=== PATIENT | male | born 1985 | race Caucasian/White ===

== ENCOUNTER 2017-08-26 19:35 | Inpatient (IN) | payer SELFPAY ==
[~2017-08-26] VITALS: Ht 188 cm; Wt 75.0 kg
[~2017-08-26 19:35] MED LIST: DICL75 PO
[2017-08-26 19:56] VITALS: BP 157/88; PULSE 107; RESP 20; TEMP 98.2; O2SAT 97
--- NOTE | 2017-08-26 20:14 | PD ---
HPI Chief Complaint: Injury Time Seen by Provider: 20:04 Travel History International Travel<30 days: No Contact w/Intl Traveler<30days: No Traveled to known affect area: No History of Present Illness HPI 32-year-old male presents to the emergency department for evaluation of left leg injury that occurred just prior to arrival. Patient was playing baseball when he slid into third base wrong causing the leg injury. Patient denies any lacerations or open areas to the lower leg. Patient has a splint put on by EMS to the left lower extremity. Patient denies any chronic medical problems and takes no prescribed medications. He states that he last ate approximately 1:30 this afternoon. He denies any other injury. No head injury. No neck pain or back pain. No chest pain or abdominal pain. No vomiting. The exacerbating factor is movement. No alleviating factors. Moderate severity. PFSH Past Medical History Diminished Hearing: No Musculoskeletal: Yes (2013- left knee: infrapatellar bursitis ) Tetanus Vaccination: > 5 Years Past Surgical History Appendectomy: Yes Social History Alcohol Use: Yes (SOCIAL) Tobacco Use: Yes (1 PPD) Substance Use: No Allergies-Medications (Allergen,Severity, Reaction): Coded Allergies: No Known Allergies (Verified Adverse Reaction, Unknown, 08/26/17) Reported Meds & Prescriptions Reported Meds & Active Scripts Active No Active Prescriptions or Reported Medications Review of Systems Except as stated in HPI: all other systems reviewed are Neg Physical Exam Narrative GENERAL: Well-nourished, well-developed male patient, afebrile SKIN: Focused skin assessment warm/dry. HEAD: Normocephalic. Atraumatic. EYES: No scleral icterus. No injection or drainage. NECK: Supple, trachea midline. No JVD or lymphadenopathy. CARDIOVASCULAR: Regular rate and rhythm without murmurs, gallops, or rubs. Left pedal pulse 2+. RESPIRATORY: Breath sounds equal bilaterally. No accessory muscle use. Lungs sounds are clear to auscultation. GASTROINTESTINAL: Abdomen soft, non-tender, nondistended. MUSCULOSKELETAL: No cyanosis, or edema. Patient has obvious deformity of the left lower extremity. BACK: Nontender without obvious deformity. No CVA tenderness. Data Data Last Documented VS Vital Signs Date Time Temp Pulse Resp B/P (MAP) Pulse Ox O2 Delivery O2 Flow Rate FiO2 08/26/17 21:01 86 20 139/89 (106) 100 Room Air 08/26/17 19:56 98.2 Orders Orders Iv Access Insert/Monitor (08/26/17 20:10) Complete Blood Count With Diff (08/26/17 20:10) Comprehensive Metabolic Panel (08/26/17 20:10) Prothrombin Time / Inr (Pt) (08/26/17 20:10) Act Partial Throm Time (Ptt) (08/26/17 20:10) Tibia/Fibula (Ap/Lat) (08/26/17 ) Hydromorphone Pf Inj (Dilaudid Pf Inj) (08/26/17 20:45) Ondansetron Inj (Zofran Inj) (08/26/17 20:45) Sodium Chlor 0.9% 1000 Ml Inj (Ns 1000 M (08/26/17 20:45) Hydromorphone Pf Inj (Dilaudid Pf Inj) (08/26/17 21:15) Hydromorphone Pf Inj (Dilaudid Pf Inj) (08/26/17 21:15) Admit Order (Ed Use Only) (08/26/17 21:25) Labs Laboratory Tests Test 08/26/17 20:35 White Blood Count 11.8 TH/MM3 Red Blood Count 4.61 MIL/MM3 Hemoglobin 14.0 GM/DL Hematocrit 41.8 % Mean Corpuscular Volume 90.7 FL Mean Corpuscular Hemoglobin 30.4 PG Mean Corpuscular Hemoglobin Concent 33.5 % Red Cell Distribution Width 13.6 % Platelet Count 254 TH/MM3 Mean Platelet Volume 7.3 FL Neutrophils (%) (Auto) 80.1 % Lymphocytes (%) (Auto) 13.3 % Monocytes (%) (Auto) 6.0 % Eosinophils (%) (Auto) 0.2 % Basophils (%) (Auto) 0.4 % Neutrophils # (Auto) 9.4 TH/MM3 Lymphocytes # (Auto) 1.6 TH/MM3 Monocytes # (Auto) 0.7 TH/MM3 Eosinophils # (Auto) 0.0 TH/MM3 Basophils # (Auto) 0.0 TH/MM3 CBC Comment DIFF FINAL Differential Comment Prothrombin Time 11.1 SEC Prothromb Time International Ratio 1.1 RATIO Activated Partial Thromboplast Time 22.1 SEC Blood Urea Nitrogen 15 MG/DL Creatinine 1.23 MG/DL Random Glucose 113 MG/DL Total Protein 7.7 GM/DL Albumin 4.6 GM/DL Calcium Level 8.2 MG/DL Alkaline Phosphatase 84 U/L Aspartate Amino Transf (AST/SGOT) 10 U/L Alanine Aminotransferase (ALT/SGPT) 23 U/L Total Bilirubin 0.4 MG/DL Sodium Level 138 MEQ/L Potassium Level 3.4 MEQ/L Chloride Level 103 MEQ/L Carbon Dioxide Level 26.8 MEQ/L Anion Gap 8 MEQ/L Estimat Glomerular Filtration Rate 68 ML/MIN MDM Medical Decision Making Medical Screen Exam Complete: Yes Emergency Medical Condition: Yes Medical Record Reviewed: Yes Interpretation(s) Last Impressions Tibia/Fibula X-Ray 08/26/17 0000 Signed Impressions: Service Date/Time: Saturday, August 26, 2017 20:33 - CONCLUSION: Spiral fractures of the distal tibia and proximal fibula with significant displacement of the distal tibial fragment Madhav Spain MD Differential Diagnosis Fracture versus dislocation versus open fracture Narrative Course 32-year-old male presents to the emergency department for evaluation of injury to his left lower extremity while sliding the third place a baseball. It is obvious deformity of the left lower extremity. IV access obtained. CBC, CMP, PTT, PT/INR ordered and pending. X-ray of the left tibia/fibula is ordered and pending. CBC shows leukocytosis of 11.8. CMP shows no acute abnormalities. Coags shows no acute abnormality. X-ray shows spiral fractures of the distal tibia and proximal fibula with significant displacement of the distal tibial fragment. Patient was in severe pain. He received Dilaudid 1 mg IV 2 doses. He is now comfortable. I spoke to Dr. Early, orthopedist research professional, who states the patient will go to the OR tomorrow. He is to be nothing by mouth after midnight consult is to be placed. Dr. Chi accepted admission. Diagnosis Primary Impression: Fracture, fibula, proximal Qualified Codes: S82.832A - Other fracture of upper and lower end of left fibula, initial encounter for closed fracture Additional Impression: Fracture of distal end of tibia Qualified Codes: S82.392A - Other fracture of lower end of left tibia, initial encounter for closed fracture Admitting Information Admitting Physician Requests: Admit Scripts No Active Prescriptions or Reported Meds Radha Werner Aug 26, 2017 20:14
[2017-08-26] MEDS ORDERED: SODIUM CHLOR 0.9% 1000 ML INJ 1,000 ML IV ONE (20:45)
[2017-08-26] MEDS ORDERED: ONDANSETRON HCL 4 MG/2 ML VIAL IV PUSH ONE (20:45)
[2017-08-26] MEDS ORDERED: HYDROmorphone HCL PF 1 MG/ML VIAL IV PUSH ONE (20:45)
[2017-08-26 20:56] LABS: AUTOMATED NEUTROPHIL # 9.4 TH/MM3 (1.8-7.7); BASOPHIL % 0.4 % (0.0-2.0); EOSINOPHIL % 0.2 % (0.0-4.0); HEMATOCRIT 41.8 % (39.0-51.0); LYMPH % 13.3 % (9.0-44.0); LYMPHOCYTE # 1.6 TH/MM3 (1.0-4.8); MEAN CELL VOLUME 90.7 FL (80.0-100.0); MEAN CORPUSCULAR HEMOGLOBIN 30.4 PG (27.0-34.0); MEAN CORPUSCULAR HGB CONC 33.5 % (32.0-36.0); MEAN PLATELET VOLUME 7.3 FL (7.0-11.0); MONOCYTE # 0.7 TH/MM3 (0-0.9); NEUT % 80.1 % (16.0-70.0); PLATELET COUNT 254 TH/MM3 (150-450); RED BLOOD COUNT 4.61 MIL/MM3 (4.50-5.90); RED CELL DISTRIBUTION WIDTH 13.6 % (11.6-17.2); WHITE BLOOD COUNT 11.8 TH/MM3 (4.0-11.0)
--- NOTE | 2017-08-26 21:00 | RADRPT ---
EXAM DATE/TIME: 08/26/2017 20:33 [facility] COMPARISON: No previous studies available for comparison. INDICATIONS : Left lower leg trauma. Patient hurt leg sliding into home base. MEDICAL HISTORY : None. SURGICAL HISTORY : None. ENCOUNTER: Initial ACUITY: 1 day PAIN SCORE: 10/10 LOCATION: Left lower leg. FINDINGS: There is a spiral displaced fracture of the distal one third shaft of the tibia with one shaft width lateral displacement of the distal fragment. Possible small comminuted fragments distal to the tibia l shaft. There is also a spiral fracture of the proximal diametaphysis of the fibula with mild angul ation. No radiopaque foreign bodies. CONCLUSION: Spiral fractures of the distal tibia and proximal fibula with significant displacement of the distal tibial fragment Madhav Spain MD on August 26, 2017 at 20:57 Board Certified Radiologist. This report was verified electronically.
[2017-08-26 21:01] VITALS: BP 139/89; PULSE 86; RESP 20; O2SAT 100
[2017-08-26 21:14] LABS: INTERNATIONAL NORMALIZED RATIO 1.1 RATIO; PROTHROMBIN TIME - PATIENT 11.1 SEC (9.8-11.6)
[2017-08-26] MEDS ORDERED: HYDROmorphone HCL PF 2 MG/ML VIAL IV PUSH ONE ×2 (21:15)
[2017-08-26 21:26] LABS: ALBUMIN 4.6 GM/DL (3.4-5.0); AST (GOT) 10 U/L (15-37); BICARBONATE 26.8 MEQ/L (21.0-32.0); BLOOD UREA NITROGEN 15 MG/DL (7-18); CALCIUM 8.2 MG/DL (8.5-10.1); CHLORIDE 103 MEQ/L (98-107); CREATININE 1.23 MG/DL (0.60-1.30); GLOMERULAR FILTRATION RATE 68 ML/MIN (>89); GLUCOSE,RANDOM 113 MG/DL (74-106); SODIUM (NA) 138 MEQ/L (136-145)
[2017-08-26 21:29] LABS: ALKALINE PHOSPHATASE 84 U/L (45-117); ALT (GPT) 23 U/L (12-78); TOTAL BILIRUBIN ADULT 0.4 MG/DL (0.2-1.0); TOTAL PROTEIN 7.7 GM/DL (6.4-8.2)
[2017-08-26] MEDS ORDERED: POTASSIUM CHLORIDE INJ 0.02 MEQ in SODIUM CHLOR 0.9% 1000 ML INJ 1 ML IV SCH (21:50)
[2017-08-26 22:00] VITALS: BP 131/73; PULSE 88; RESP 18; O2SAT 98
[2017-08-26] MEDS ORDERED: NALOXONE HCL 0.4 MG/ML AMP IV PUSH PRN (22:00)
[2017-08-26] MEDS ORDERED: HYDROmorphone HCL PF 1 MG/ML VIAL IV PUSH PRN (22:00)
[2017-08-26] MEDS ORDERED: ACETAMINOPHEN 325 MG TAB PO PRN (22:00)
--- NOTE | 2017-08-26 22:35 | HHI.HP ---
[facility] Service [place] [facility] Primary Care Physician No Primary Care Physician Admission Diagnosis spiral fractures of the distal tibia and proximal fibula Diagnoses: Travel History International Travel<30 Days: No Contact w/Intl Traveler <30 Da: No Traveled to Known Affected Are: No History of Present Illness 32-year-old male with no significant past medical history presents the emergency department for evaluation of left leg deformity/pain. The patient reports he was playing baseball when he attempted to slide into third base at which time he felt severe pain in his right lower extremity. He denies any lacerations or open areas to the lower leg. Per emergency department notes there was an obvious deformity of the left lower extremity. At this time, the patient is splinted. He has full range of motion of his toes and is neurovascularly intact. He continues to complain of lower extremity pain. He denies any chest pain or shortness of breath. No nausea/vomiting/diarrhea. No other associated symptoms. Review of Systems Except as stated in HPI: all other systems reviewed are Neg Past Family Social History Past Medical History None Past Surgical History Appendectomy Reported Medications Reported Meds & Active Scripts Active No Active Prescriptions or Reported Medications Allergies: Coded Allergies: No Known Allergies (Verified Allergy, Unknown, 08/26/17) Family History Patient does not know. Social History Smokes approximately half a pack per day. Occasional alcohol. Denies illicit drugs. Physical Exam Vital Signs Vital Signs Date Time Temp Pulse Resp B/P (MAP) Pulse Ox O2 Delivery O2 Flow Rate FiO2 08/26/17 21:01 86 20 139/89 (106) 100 Room Air 08/26/17 20:07 Room Air 08/26/17 19:56 98.2 107 20 157/88 (111) 97 Physical Exam GENERAL: male lying in bed SKIN: No rashes, ecchymoses or lesions. Cool and dry. HEAD: Atraumatic. Normocephalic. No temporal or scalp tenderness. EYES: Pupils equal round and reactive. Extraocular motions intact. No scleral icterus. No injection or drainage. ENT: Nose without bleeding, purulent drainage or septal hematoma. Throat without erythema, tonsillar hypertrophy or exudate. Uvula midline. Airway patent. NECK: Trachea midline. No JVD or lymphadenopathy. Supple, nontender, no meningeal signs. CARDIOVASCULAR: Regular rate and rhythm without murmurs, gallops, or rubs. RESPIRATORY: Clear to auscultation. Breath sounds equal bilaterally. No wheezes , rales, or rhonchi. GASTROINTESTINAL: Abdomen soft, non-tender, nondistended. No hepato-splenomegaly , or palpable masses. No guarding. MUSCULOSKELETAL: Left leg splinted. Range of motion of the toes intact. Neurovascularly intact. NEUROLOGICAL: Awake and alert. Cranial nerves II through XII intact. Motor and sensory grossly within normal limits. Normal speech. Laboratory Laboratory Tests Test 08/26/17 20:35 White Blood Count 11.8 Red Blood Count 4.61 Hemoglobin 14.0 Hematocrit 41.8 Mean Corpuscular Volume 90.7 Mean Corpuscular Hemoglobin 30.4 Mean Corpuscular Hemoglobin Concent 33.5 Red Cell Distribution Width 13.6 Platelet Count 254 Mean Platelet Volume 7.3 Neutrophils (%) (Auto) 80.1 Lymphocytes (%) (Auto) 13.3 Monocytes (%) (Auto) 6.0 Eosinophils (%) (Auto) 0.2 Basophils (%) (Auto) 0.4 Neutrophils # (Auto) 9.4 Lymphocytes # (Auto) 1.6 Monocytes # (Auto) 0.7 Eosinophils # (Auto) 0.0 Basophils # (Auto) 0.0 CBC Comment DIFF FINAL Differential Comment Prothrombin Time 11.1 Prothromb Time International Ratio 1.1 Activated Partial Thromboplast Time 22.1 Blood Urea Nitrogen 15 Creatinine 1.23 Random Glucose 113 Total Protein 7.7 Albumin 4.6 Calcium Level 8.2 Alkaline Phosphatase 84 Aspartate Amino Transf (AST/SGOT) 10 Alanine Aminotransferase (ALT/SGPT) 23 Total Bilirubin 0.4 Sodium Level 138 Potassium Level 3.4 Chloride Level 103 Carbon Dioxide Level 26.8 Anion Gap 8 Estimat Glomerular Filtration Rate 68 Result Diagram: 08/26/17203408/26/172034 Caprini VTE Risk Assessment Caprini VTE Risk Assessment: No/Low Risk (score <= 1) Caprini Risk Assessment Model Point Value = 1 Point Value = 2 Point Value = 3 Point Value = 5 Age 41-60 Minor surgery BMI > 25 kg/m2 Swollen legs Varicose veins or History of unexplained or recurrent spontaneous Oral contraceptives or hormone replacement Sepsis (< 1 month) Serious lung disease, including pneumonia (< 1 month) Abnormal pulmonary function Acute myocardial infarction Congestive heart failure (< 1 month) History of inflammatory bowel disease Medical patient at bed rest Age 61-74 Arthroscopic surgery Major open surgery (> 45 min) Laparoscopic surgery (> 45 min) Malignancy Confined to bed (> 72 hours) Immobilizing plaster cast Central venous access Age >= 75 History of VTE Family history of VTE Factor V Leiden Prothrombin [id number] Lupus anticoagulant Anticardiolipin antibodies Elevated serum homocysteine Heparin-induced thrombocytopenia Other congenital or acquired thrombophilia Stroke (< 1 month) Elective arthroplasty Hip, pelvis, or leg fracture Acute spinal cord injury (< 1 month) Prophylaxis Regimen Total Risk Factor Score Risk Level Prophylaxis Regimen 0-1 Low Early ambulation 2 Moderate Order ONE of the following: *Sequential Compression Device (SCD) *Heparin 5000 units SQ BID 3-4 Higher Order ONE of the following medications: *Heparin 5000 units SQ TID *Enoxaparin/Lovenox 40 mg SQ daily (WT < 150 kg, CrCl > 30 mL/min) *Enoxaparin/Lovenox 30 mg SQ daily (WT < 150 kg, CrCl > 10-29 mL/min) *Enoxaparin/Lovenox 30 mg SQ BID (WT < 150 kg, CrCl > 30 mL/min) AND/OR *Sequential Compression Device (SCD) 5 or more Highest Order ONE of the following medications: *Heparin 5000 units SQ TID (Preferred with Epidurals) *Enoxaparin/Lovenox 40 mg SQ daily (WT < 150 kg, CrCl > 30 mL/min) *Enoxaparin/Lovenox 30 mg SQ daily (WT < 150 kg, CrCl > 10-29 mL/min) *Enoxaparin/Lovenox 30 mg SQ BID (WT < 150 kg, CrCl > 30 mL/min) AND *Sequential Compression Device (SCD) Assessment and Plan Assessment and Plan Assessment/plan: 1. Spiral fracture of tibia/fibula Left lower extremity x-ray significant for spiral fractures of the distal tibia and proximal fibula with significant displacement of the distal tibial fragment Dilaudid for pain Nothing by mouth Orthopedic surgery consulted, appreciate assistance 2. Hypokalemia Status post by mouth repletion Repeat BMP in the a.m. FEN NPO Electrolytes: as above NS + 20KCl at 100 cc/hr Physician Certification 2 Midnight Certification Type: Admission for Inpatient Services Order for Inpatient Services The services are ordered in accordance with Medicare regulations or non- Medicare payer requirements, as applicable. In the case of services not specified as inpatient-only, they are appropriately provided as inpatient services in accordance with the 2-midnight benchmark. Estimated LOS (days): 2 2 days is the estimated time the patient will need to remain in the hospital, assuming treatment plan goals are met and no additional complications. Post-Hospital Plan: Not yet determined Fatimah Chi MD Aug 26, 2017 22:35
[2017-08-26] MEDS ORDERED: POTASSIUM CHLORIDE 20 MEQ CONTROLLED RELEASE TAB PO ONE (22:45)
[2017-08-26 23:00] VITALS: BP 134/73; PULSE 80; RESP 17; O2SAT 99
[2017-08-26] MEDS: NS + KCL 20 MEQ INJ 1,000 ML IV SCH (23:02)
[2017-08-27] VITALS (9 sets, daily range): BP systolic 114–143; BP diastolic 69–91; PULSE 66–88; RESP 14–18; TEMP 96.9–98.8; O2SAT 96–100
[2017-08-27] MEDS: SODIUM CHLORIDE 0.9% FLUSH 10 ML FLUSH IV FLUSH PRN ×2 (02:21→05:37)
[2017-08-27] MEDS: HYDROmorphone HCL PF 2 MG/ML VIAL IV PRN ×4 (02:22→22:15)
[2017-08-27 04:04] LABS: BASOPHIL % 0.2 % (0.0-2.0); EOSINOPHIL # 0.1 TH/MM3 (0-0.4); EOSINOPHIL % 0.5 % (0.0-4.0); LYMPHOCYTE # 2.4 TH/MM3 (1.0-4.8); MEAN CELL VOLUME 90.9 FL (80.0-100.0); MEAN CORPUSCULAR HEMOGLOBIN 31.7 PG (27.0-34.0); MEAN CORPUSCULAR HGB CONC 34.9 % (32.0-36.0); MEAN PLATELET VOLUME 7.3 FL (7.0-11.0); MONO % 9.2 % (0.0-8.0); NEUT % 67.1 % (16.0-70.0); PLATELET COUNT 231 TH/MM3 (150-450); RED CELL DISTRIBUTION WIDTH 13.4 % (11.6-17.2); WHITE BLOOD COUNT 10.4 TH/MM3 (4.0-11.0)
[2017-08-27 04:30] LABS: BICARBONATE 27.3 MEQ/L (21.0-32.0); CALCIUM 8.2 MG/DL (8.5-10.1); CREATININE 1.07 MG/DL (0.60-1.30)
[2017-08-27] MEDS: ONDANSETRON HCL 4 MG/2 ML VIAL IVP PRN ×2 (05:37→16:12)
--- NOTE | 2017-08-27 07:35 | PD.ORT.PN ---
Subjective Subjective Remarks 32-year-old male playing kickball. Slid into second base and fractured left tibia. Closed fracture. No other associated injuries Objective Vitals Vital Signs Date Time Temp Pulse Resp B/P (MAP) Pulse Ox O2 Delivery O2 Flow Rate FiO2 08/27/17 05:20 81 15 139/91 (107) 99 Room Air 08/27/17 03:00 14 08/27/17 02:22 77 14 115/82 (93) 100 Room Air 08/27/17 01:00 74 15 127/82 (97) 99 Room Air 08/27/17 00:00 66 15 116/79 (91) 98 Room Air 08/26/17 23:00 80 17 134/73 (93) 99 Room Air 08/26/17 22:00 88 18 131/73 (92) 98 Room Air 08/26/17 21:01 86 20 139/89 (106) 100 Room Air 08/26/17 20:07 Room Air 08/26/17 19:56 98.2 107 20 157/88 (111) 97 I/O 08/26/17 08/26/17 08/26/17 08/27/17 08/27/17 08/27/17 07:00 15:00 23:00 07:00 15:00 23:00 Intake Total 1000 ml Balance 1000 ml Intake IV Total 1000 ml Result Diagram: 08/27/17 0341 08/27/17 0341 Other Results Laboratory Tests Test 08/26/17 20:35 Prothromb Time International Ratio 1.1 RATIO Prothrombin Time 11.1 SEC (9.8-11.6) Objective Remarks Bilateral upper extremities: Full range of motion neurovascularly intact Right lower extremity: Full range of motion and neurovascularly intact Left lower extremity: No pain with hip range of motion. Long-leg splint in place. Compartments semi-soft. Intact sensation distally and is able to move all his toes Assessment & Plan Assessment and Plan Left tibia shaft spiral fracture Maintain splint Elevate and ice Nothing by mouth Surgery this morning with Dr. Fuentes for intramedullary tiff fixation Sign consents Jeremiah Edwards Jr. Aug 27, 2017 07:35
[2017-08-27] MEDS: SODIUM CHLORIDE 0.9% FLUSH 10 ML FLUSH IV FLUSH SCH ×2 (09:00→20:34)
[2017-08-27] MEDS: NS + KCL 20 MEQ INJ 1,000 ML IV SCH ×2 (09:21→15:19)
--- NOTE | 2017-08-27 09:46 | HHI.PR ---
Subjective Remarks Follow-up for fractured left tibia during kickball game. Patient is currently resting in bed and complains of significant pain. No fever or chills. Objective Vitals Vital Signs Date Time Temp Pulse Resp B/P (MAP) Pulse Ox O2 Delivery O2 Flow Rate FiO2 08/27/17 09:19 16 08/27/17 08:42 68 18 136/83 (100) 98 Room Air 08/27/17 07:45 85 18 138/88 (105) 100 Room Air 08/27/17 05:20 81 15 139/91 (107) 99 Room Air 08/27/17 02:22 77 14 115/82 (93) 100 Room Air 08/27/17 01:00 74 15 127/82 (97) 99 Room Air 08/27/17 00:00 66 15 116/79 (91) 98 Room Air 08/26/17 23:00 80 17 134/73 (93) 99 Room Air 08/26/17 22:00 88 18 131/73 (92) 98 Room Air 08/26/17 21:01 86 20 139/89 (106) 100 Room Air 08/26/17 20:07 Room Air 08/26/17 19:56 98.2 107 20 157/88 (111) 97 I/O 08/26/17 08/26/17 08/26/17 08/27/17 08/27/17 08/27/17 07:00 15:00 23:00 07:00 15:00 23:00 Intake Total 1000 ml Balance 1000 ml Intake IV Total 1000 ml Result Diagram: 08/27/17 0341 08/27/17 0341 Imaging Last Impressions Tibia/Fibula X-Ray 08/27/17 0000 Signed Impressions: Service Date/Time: August 13:10 - CONCLUSION: Good position and alignment on this postoperative study. Donnell Yañez MD Objective Remarks GENERAL: Alert, oriented 3, NAD. Mild distress due to pain. SKIN: Warm and dry. HEAD: Normocephalic. EYES: No scleral icterus. No injection or drainage. NECK: Supple, trachea midline. No JVD or lymphadenopathy. CARDIOVASCULAR: Regular rate and rhythm without murmurs, gallops, or rubs. RESPIRATORY: Breath sounds equal bilaterally. No accessory muscle use. GASTROINTESTINAL: Abdomen soft, non-tender, nondistended. MUSCULOSKELETAL: No cyanosis, or edema. Left lower extremity status post intramedullary nail fixation. BACK: Nontender without obvious deformity. No CVA tenderness. A/P Problem List: (1) Fracture of distal end of tibia ICD Code: S82.309A - Unspecified fracture of lower end of unspecified tibia, initial encounter for closed fracture Status: Acute (2) Fracture, fibula, proximal ICD Code: S82.839A - Other fracture of upper and lower end of unspecified fibula, initial encounter for closed fracture Status: Acute Assessment and Plan Mr. Christensen is a pleasant 32-year-old male with no significant past medical history who was admitted to the hospital on 08/26/2017 due to left tibia and fibula fracture. -Spiral fractures of the distal tibia and proximal fibula on the left side -Status post left tibia reduction and intramedullary nail fixation -Patient is currently on morphine DEPUTY GRAND JURY pump. He is also on [place] as needed as well as morphine as needed -We will switch [place] to Percocet. Morphine DEPUTY GRAND JURY pump would likely be discontinued today. -Lovenox 40 mg every 24 hours for DVT prophylaxis -We will add bowel regimen -Mild acute kidney injury -Mild hypokalemia -Creatinine 1.23 on admission. Improved to 1.07. 3.4 on admission improved to 3.9 Full code Lovenox. Problem Qualifiers (1) Fracture of distal end of tibia: Qualified Codes: S82.392A - Other fracture of lower end of left tibia, initial encounter for closed fracture (2) Fracture, fibula, proximal: Qualified Codes: S82.832A - Other fracture of upper and lower end of left fibula, initial encounter for closed fracture Levi Majano DO Aug 27, 2017 09:46
[2017-08-27] MEDS ORDERED: ACETAMINOPHEN 1000 MG/100 ML 100 ML IV ONE (11:54)
[2017-08-27] MEDS ORDERED: HYDR-3583 PO (11:57)
[2017-08-27] MEDS ORDERED: XARE10TA PO (11:57)
[2017-08-27] MEDS ORDERED: WALKER/ADULT/FO1 MIS (11:57)
[2017-08-27] MEDS ORDERED: PROPOFOL 200 MG/20 ML AMP IV ONE (12:00)
[2017-08-27] MEDS ORDERED: ROCURONIUM INJ 50 MG/5 ML SYRINGE IV PUSH ONE (12:00)
[2017-08-27] MEDS ORDERED: SODIUM CHLORIDE 0.9% 20 ML VIAL IV ONE (12:00)
[2017-08-27] MEDS ORDERED: ONDANSETRON HCL 4 MG/2 ML VIAL IV ONE (12:00)
[2017-08-27] MEDS ORDERED: LACTATED RINGER'S 1000 ML INJ 1,000 ML IV ONE (12:00)
[2017-08-27] MEDS ORDERED: LIDOCAINE HCL 1% PF 5 ML SYRINGE OTHER ONE (12:00)
[2017-08-27] MEDS ORDERED: GLYCOPYRROLATE 1 MG/5 ML SYRINGE IV PUSH ONE (12:00)
[2017-08-27] MEDS ORDERED: NEOSTIGMINE 5 MG/5 ML SYRINGE IV PUSH ONE (12:00)
[2017-08-27] MEDS ORDERED: GENTAMICIN SULFATE 80 MG/2 ML VIAL ONE (12:14)
[2017-08-27] MEDS ORDERED: ceFAZolin 2 GM PREMIX 50 ML ONE (12:14)
[2017-08-27] MEDS ORDERED: VANCOMYCIN HCL 1000 MG VIAL ONE (12:14)
[2017-08-27] MEDS ORDERED: SODIUM CHLORID 0.9% 500 ML IV PRN (12:15)
[2017-08-27] MEDS ORDERED: CHLORHEXIDINE GLUCONATE 2 % 1 PACK (2 CLOTHS) TOPICAL PRN (12:15)
[2017-08-27] MEDS ORDERED: LACTATED RINGER'S 1000 ML IV PRN (12:15)
[2017-08-27] MEDS ORDERED: POVIDONE IODINE 5% (ANTISEPSIS KIT) 4 APPLICATIONS EACH NARE PRN (12:15)
[2017-08-27] MEDS ORDERED: INSULIN HUMAN REGULAR 1,000 UNITS/10 ML VIAL SQ PRN (12:15)
[2017-08-27] MEDS ORDERED: METOPROLOL TARTRATE 25 MG TAB PO PRN (12:15)
--- NOTE | 2017-08-27 13:27 | PD.OP ---
Operative Report Date of Surgery: Aug 27, 2017 Preoperative Diagnosis: Closed left tibia fracture Postoperative Diagnosis: Procedure: Left tibia reduction and intramedullary nail fixation Anesthesia: Gen. Surgeon: Kevin Fuentes Maintenance Service Dispatcher(s): NIKHIL Olivier PA-C The surgical procedure was assisted by my physician career services assistant. My P.A. presence was necessary throughout this case for the manipulation and positioning of the surgical extremity. My P.A. was assisting me throughout the duration of this procedure. The skill set of a physician career services assistant was medically necessary to complete this procedure. During the surgical case the operating room surgical technician was working at the back table and the physician career services assistant was directly assisting me. Operation and Findings: Implants: ITS [10]mm x [360]mm tibial nail Plan of activity: Patient was seen and examined preoperatively. An informed consent was obtained from patient after detailed discussion of risk and benefits. Risks of surgery include bleeding, infection, painful hardware, nonunion, malunion, leg length discrepancy, need for hardware removal, and medical complications associated with anesthesia including blood clots, stroke, heart attack, and were discussed. Operative site was marked. Patient was brought to the operating room placed on or table. Patient received IV antibiotics and was given IV sedation GETA. Operative leg was prepped with alcohol Hibiclens and draped in usual sterile fashion. Timeout procedure was performed Procedure began with reduction of fracture. 2 small incisions were made around the fracture site. A percutaneous clamp was placed. Traction was applied. Fracture was reduced. The fracture reduced and excellent alignment was achieved. Fracture clamp was used to aid in reduction. Next a 3 cm incision was made proximal to the patella. Quadriceps tendon was split in line with fibers. Cannulas were placed in the patellofemoral joint to protect the articular surface at all times. A guidepin was placed into the tibia and advanced in the tibial canal. Fluoroscopy was used to confirm appropriate guidepin placement. An opening reamer was used to open the tibial canal. A ball-tipped guidewire was advanced down the tibial canal. Guidepin was passed across the fracture site into the center of the distal tibia. Fluoroscopy confirmed guidepin placement. The nail length was now measured. The fracture was now held in a reduced position and the canal was reamed. The canal was reamed up to appropriate size. A ITS nail was now selected. Next the nail was fully seated. Using perfect [place] technique 2 distal interlocking screws were placed. Using the insertion handle as a guide 2 proximal interlocking screws were placed. Fluoroscopy confirmed excellent of fracture with well-placed hardware. Incisions and the knee joint were thoroughly irrigated with sterile saline. Fascia was closed with #1 Vicryl, subcutaneous tissues closed with 3-0 Vicryl and skin was closed with vanessa. Sterile dressings were applied. Patient was awakened and transferred to recovery in stable condition. Kevin Fuentes MD Aug 27, 2017 13:27
[2017-08-27] MEDS ORDERED: ERGOCALCIFEROL (VIT D2) 50,000 UNIT CAP PO SCH (13:30)
[2017-08-27] MEDS ORDERED: diphenhydrAMINE HCL 25 MG CAP PO PRN (13:30)
[2017-08-27] MEDS ORDERED: ONDANSETRON HCL 4 MG/2 ML VIAL IVP PRN (13:30)
[2017-08-27] MEDS ORDERED: MORPHINE SULFATE 4 MG/ML INJ IV PUSH PRN (13:30)
[2017-08-27] MEDS ORDERED: *MEPERIDINE 25 MG INJ VIAL PERIprocedural Use ONLY ONE (13:53)
--- NOTE | 2017-08-27 13:55 | RADRPT ---
EXAM DATE/TIME: 08/27/2017 13:10 [facility] COMPARISON: TIBIA/FIBULA LEFT (AP/LAT), August 26, 2017, 20:33. INDICATIONS : Post-op ORIF left tibia. MEDICAL HISTORY : None. SURGICAL HISTORY : None. ENCOUNTER: Subsequent ACUITY: 2 days PAIN SCORE: Non-responsive. LOCATION: Left Tibia. FINDINGS: Status post internal fixation. There is an intramedullary tiff in the tibia. There is good alignment a nd position of the fracture fragments. There is a fracture involving the proximal fibula. CONCLUSION: Good position and alignment on this postoperative study. Donnell Yañez MD on August 27, 2017 at 13:53 Board Certified Radiologist. This report was verified electronically.
[2017-08-27] MEDS ORDERED: DO NOT ADM ANY ANTICOAGULANT DRUGS PRN (14:30)
[2017-08-27] MEDS: LACTATED RINGER'S 1000 ML INJ 1,000 ML IV SCH ×2 (15:18→20:34)
[2017-08-27] MEDS: ERGOCALCIFEROL (VIT D2) 50,000 UNIT CAP PO SCH ×2 (15:19→16:12)
[2017-08-27] MEDS: CALCIUM/VITAMIN D 250 MG/125 U TAB PO SCH (16:12)
[2017-08-27] MEDS: ACETAMINOPHEN/HYDROcodone 325 MG/10 MG TAB PO PRN ×2 (16:13→20:29)
[2017-08-27] MEDS ORDERED: MIDAZOLAM HCL 2 MG/2 ML VIAL ONE (17:59)
[2017-08-27] MEDS ORDERED: MORPHINE SULFATE 4 MG/ML INJ ONE ×2 (18:00)
[2017-08-27] MEDS: ceFAZolin 2 GM PREMIX 50 ML IV SCH (20:26)
[2017-08-27] MEDS ORDERED: NALOXONE HCL 0.4 MG/ML AMP IV PUSH PRN (22:15)
[2017-08-27] MEDS ORDERED: SENNOSIDES 8.6 MG TAB PO PRN (22:15)
[2017-08-27] MEDS ORDERED: BISACODYL 10 MG SUPP RECTAL PRN (22:15)
[2017-08-27] MEDS ORDERED: LACTULOSE SYRUP 20 GM/30 ML CUP PO PRN (22:15)
[2017-08-27] MEDS ORDERED: MAGNESIUM HYDROXIDE SUSP 30 ML CUP PO PRN (22:15)
[2017-08-28] MEDS: ENOXAPARIN SODIUM 40 MG/0.4 ML SYRINGE SQ SCH (01:41)
[2017-08-28] MEDS: ACETAMINOPHEN/HYDROcodone 325 MG/10 MG TAB PO PRN ×5 (01:41→22:21)
[2017-08-28] MEDS: ceFAZolin 2 GM PREMIX 50 ML IV SCH ×2 (03:35→12:09)
[2017-08-28] MEDS: HYDROmorphone HCL PF 2 MG/ML VIAL IV PRN ×3 (03:35→20:13)
[2017-08-28 04:00] VITALS: BP 122/67; PULSE 88; RESP 16; TEMP 98.3; O2SAT 97
--- NOTE | 2017-08-28 07:36 | HHI.PR ---
Subjective Remarks Follow-up for fractured left tibia during kickball game. Patient is doing well. No acute concerns. No BM yet. Objective Vitals Vital Signs Date Time Temp Pulse Resp B/P (MAP) Pulse Ox O2 Delivery O2 Flow Rate FiO2 08/28/17 04:00 98.3 88 16 122/67 (85) 97 08/27/17 23:27 98.8 88 16 114/69 (84) 96 08/27/17 20:00 97.0 74 16 135/71 (92) 97 08/27/17 16:45 96.9 73 18 143/83 (103) 98 08/27/17 15:45 98.6 61 14 132/68 (89) 100 Nasal Cannula 2 08/27/17 15:30 74 20 130/69 (89) 100 Nasal Cannula 2 08/27/17 15:00 85 17 125/76 (92) 100 Nasal Cannula 2 08/27/17 14:30 66 12 120/75 (90) 100 Nasal Cannula 2 08/27/17 14:15 78 13 126/68 (87) 100 Nasal Cannula 2 08/27/17 14:00 85 15 125/70 (88) 99 Nasal Cannula 2 08/27/17 13:47 98.5 120 20 128/84 (99) 100 Nasal Cannula 2 08/27/17 11:22 08/27/17 09:19 16 08/27/17 08:42 68 18 136/83 (100) 98 Room Air 08/27/17 07:45 85 18 138/88 (105) 100 Room Air I/O 08/27/17 08/27/17 08/27/17 08/28/17 08/28/17 08/28/17 07:00 15:00 23:00 07:00 15:00 23:00 Intake Total 315 ml 70 ml 600 ml Output Total 550 ml Balance -235 ml 70 ml 600 ml Intake Oral 15 ml 15 ml 600 ml IV Total 300 ml 55 ml Output Urine Total 500 ml Estimated Blood Loss 50 ml # Voids 1 2 Result Diagram: 08/27/17 0341 08/27/17 0341 Imaging Last Impressions Tibia/Fibula X-Ray 08/27/17 0000 Signed Impressions: Service Date/Time: August 13:10 - CONCLUSION: Good position and alignment on this postoperative study. Donnell Yañez MD Objective Remarks GENERAL: Alert, oriented 3, NAD. Mild distress due to pain. SKIN: Warm and dry. HEAD: Normocephalic. EYES: No scleral icterus. No injection or drainage. NECK: Supple, trachea midline. No JVD or lymphadenopathy. CARDIOVASCULAR: Regular rate and rhythm without murmurs, gallops, or rubs. RESPIRATORY: Breath sounds equal bilaterally. No accessory muscle use. GASTROINTESTINAL: Abdomen soft, non-tender, nondistended. MUSCULOSKELETAL: No cyanosis, or edema. Left lower extremity status post intramedullary nail fixation. BACK: Nontender without obvious deformity. No CVA tenderness. Procedures 08/27/2017 Left tibia reduction and intramedullary nail fixation A/P Problem List: (1) Fracture of distal end of tibia ICD Code: S82.309A - Unspecified fracture of lower end of unspecified tibia, initial encounter for closed fracture Status: Acute (2) Fracture, fibula, proximal ICD Code: S82.839A - Other fracture of upper and lower end of unspecified fibula, initial encounter for closed fracture Status: Acute Assessment and Plan Mr. Christensen is a pleasant 32-year-old male with no significant past medical history who was admitted to the hospital on 08/26/2017 due to left tibia and fibula fracture. -Spiral fractures of the distal tibia and proximal fibula on the left side -Status post left tibia reduction and intramedullary nail fixation -Acetaminophen, [place] PRN for pain. Dilaudid for Breakthrough. -Lovenox 40 mg every 24 hours for DVT prophylaxis -bowel regimen -Mild acute kidney injury -Mild hypokalemia -Creatinine 1.23 on admission. Improved to 1.07. Potassium 3.4 on admission improved to 3.9 - Hypertension - likely due to pain. Systolic BP in the 170s today. Previously, systolic BP 120s. Full code Lovenox. Probable discharge on 08/29/2017. Problem Qualifiers (1) Fracture of distal end of tibia: Qualified Codes: S82.392A - Other fracture of lower end of left tibia, initial encounter for closed fracture (2) Fracture, fibula, proximal: Qualified Codes: S82.832A - Other fracture of upper and lower end of left fibula, initial encounter for closed fracture Levi Majano DO Aug 28, 2017 7:36 am
[2017-08-28] MEDS: CALCIUM/VITAMIN D 250 MG/125 U TAB PO SCH ×3 (07:58→16:17)
[2017-08-28] MEDS: ASCORBIC ACID 500 MG TAB PO SCH (07:58)
[2017-08-28] MEDS: CHOLECALCIFEROL (VIT D3) 1000 UNIT TAB PO SCH (07:58)
[2017-08-28 08:00] VITALS: BP 170/69; PULSE 79; RESP 18; TEMP 97.5; O2SAT 97
[2017-08-28] MEDS: SODIUM CHLORIDE 0.9% FLUSH 10 ML FLUSH IV FLUSH SCH ×2 (09:00→20:13)
--- NOTE | 2017-08-28 09:16 | HHI.FF ---
Face to Face Verification Diagnosis: (1) Fracture of distal end of tibia Physical Therapy Gait training, Safety evaluation Right LE Weight Bearing: WB as tolerated Left LE Weight Bearing: Toe Touch WB Nursing Dressing Changes: Daily dressing change, Humphrey wrap, 4x4s, Xeroform I have seen patient Rohan Christensen on 08/28/17. My clinical findings support the need for the requested home health care services because: Ltd mobility - disease progression I certify that my clinical findings support that this patient is homebound because: Post-op weakness Oli Uribe/Entrepreneurship Program Director PA Aug 28, 2017 09:16
--- NOTE | 2017-08-28 09:16 | PD.ORT.PN ---
Subjective Subjective Remarks POD 1 s/p IMN left tibia doing well. reports pain but controlled. has not been out of bed yet Objective Vitals Vital Signs Date Time Temp Pulse Resp B/P (MAP) Pulse Ox O2 Delivery O2 Flow Rate FiO2 08/28/17 04:00 98.3 88 16 122/67 (85) 97 08/27/17 23:27 98.8 88 16 114/69 (84) 96 08/27/17 20:00 97.0 74 16 135/71 (92) 97 08/27/17 16:45 96.9 73 18 143/83 (103) 98 08/27/17 15:45 98.6 61 14 132/68 (89) 100 Nasal Cannula 2 08/27/17 15:30 74 20 130/69 (89) 100 Nasal Cannula 2 08/27/17 15:00 85 17 125/76 (92) 100 Nasal Cannula 2 08/27/17 14:30 66 12 120/75 (90) 100 Nasal Cannula 2 08/27/17 14:15 78 13 126/68 (87) 100 Nasal Cannula 2 08/27/17 14:00 85 15 125/70 (88) 99 Nasal Cannula 2 08/27/17 13:47 98.5 120 20 128/84 (99) 100 Nasal Cannula 2 08/27/17 11:22 08/27/17 09:19 16 I/O 08/27/17 08/27/17 08/27/17 08/28/17 08/28/17 08/28/17 07:00 15:00 23:00 07:00 15:00 23:00 Intake Total 315 ml 70 ml 600 ml Output Total 550 ml Balance -235 ml 70 ml 600 ml Intake Oral 15 ml 15 ml 600 ml IV Total 300 ml 55 ml Output Urine Total 500 ml Estimated Blood Loss 50 ml # Voids 1 2 Result Diagram: 08/27/17 03408/27/17340 Objective Remarks LLE: dressings clean and dry. intact. NVI with good dorsiflexion of toes and ankle. compartments soft Assessment & Plan Assessment and Plan 1) Left tibia shaft spiral fracture s/p IMN - POD 1 -NWB -daily dressing changes POD 2 -work with PT today on using walker and ambulating -if doing well and pain controlled, possible DC home Thursday -f/u wtluli Goodman or PA in 2 weeks Oli Uribe PA/Multi Operation Forming Machine Setter PA Aug 28, 2017 09:16
--- NOTE | 2017-08-28 09:19 | MB ---
cc: Kevin Goodman MD DATE OF CONSULT: 08/27/2017 REASON FOR CONSULTATION: Left tibial shaft fracture. CONSULTING PHYSICIAN: Fatimah Chi MD HISTORY: Rohan is a 32-year-old male who presented to the emergency room with left leg pain. He was playing kickball. He was sliding into third base. He twisted his left leg. He had immediate pain and deformity. He presented to the emergency room where x-rays revealed a displaced left tibial shaft fracture with fibula fracture. He is currently awake and alert in the emergency department. His only complaint is his left leg. He denies dizziness, syncope or loss of consciousness. The pain is worse with movement and is improved with rest. PAST MEDICAL HISTORY: Illnesses: None. Surgeries: Appendectomy. MEDICATIONS: None prior to hospitalization. ALLERGIES: NONE. SOCIAL HISTORY: The patient smokes a half pack a day. He drinks alcohol occasionally. He denies drug use. FAMILY HISTORY: Noncontributory. REVIEW OF SYSTEMS: The patient denies headache, visual changes, neck pain, chest pain, shortness of breath, abdominal pain, nausea, vomiting or recent weight loss. No fevers, chills, numbness or tingling of extremities. He complains of left leg pain. The pain is worse with movement. PHYSICAL EXAM: GENERAL: The patient is a thin, well-developed, well nourished 32-year-old male. He is in no acute distress. He is awake and alert. VITAL SIGNS: Temperature 98.3, pulse 88, respirations 16, blood pressure 122/67, O2 sat is 97% on room air. HEAD: The patient is normocephalic. EYES: Pupils are equal. NECK: Soft and nontender. Trachea is midline. ABDOMEN: Soft, nontender and nondistended. EXTREMITIES: Examination of bilateral upper extremities reveals no pain with shoulder, elbow or wrist motion. He has intact sensation in all fingers. He has good cap refill in all fingers. Skin is intact. Radial pulses are palpable. Examination of the right leg reveals no pain with hip, knee or ankle motion. Skin is intact. Dorsalis pedis pulse is palpable. Sensation is intact. Examination of the left leg reveals no tenderness around his hip or knee. He is tender to palpation around his tibia and ankle. He has pain with any attempted knee or ankle motion. Calf compartments are soft. Skin is intact. Dorsalis pedis pulse is palpable. Sensation is intact to one foot. X-RAYS: X-rays of the left tibia were reviewed. X-rays reveal an oblique left tibial shaft fracture. There is also a proximal fibular fracture. LABS: The patient has a white blood cell count of 10.4, hemoglobin of 14 and hematocrit of 40.0. INR is 1.1. BUN is 11 and creatinine is 1.07. IMPRESSION: Displaced left tibia and fibular fractures. PLAN: Treatment options were discussed with the patient. At this point, I would recommend surgical intervention. I would recommend reduction and intramedullary nail fixation of the left tibia. The risks of surgery include bleeding, infection, injuries to arteries, nerves and blood vessels, nonunion, malunion, painful hardware, as well as medical complications including blood clot, stroke heart attack and . All questions were answered. We will plan on surgery today. A mid-level provider in my office, nurse practitioner or PA, may see this patient on a follow-up basis and continue to implement the objective of this plan including: Starting or adjusting medications, injections of muscle, tendon, bursa or joints, cast application, orthotic or brace application, physical therapy, further radiographic studies including x-ray, MRI, CT, ultrasounds or bone scan, vascular studies, neurologic studies, or other specialist consultations, and proceeding with surgical management as appropriate. MD PIERCE Max/ABAD , 08:40 AM , 09:18 AM
[2017-08-28 12:00] VITALS: BP 121/78; PULSE 82; RESP 18; TEMP 98.2; O2SAT 93
[2017-08-28] MEDS: LACTATED RINGER'S 1000 ML INJ 1,000 ML IV SCH ×3 (12:09→22:21)
[2017-08-28] MEDS ORDERED: ACETAMINOPHEN 325 MG TAB PO PRN (14:00)
[2017-08-28 16:00] VITALS: BP 113/73; PULSE 83; RESP 18; TEMP 98.7; O2SAT 98
[2017-08-28 20:00] VITALS: BP 147/74; PULSE 83; RESP 16; TEMP 99.7; O2SAT 98
[2017-08-29 00:06] VITALS: BP 129/72; PULSE 78; RESP 16; TEMP 98.5; O2SAT 98
[2017-08-29] MEDS: ENOXAPARIN SODIUM 40 MG/0.4 ML SYRINGE SQ SCH (01:44)
[2017-08-29] MEDS: ACETAMINOPHEN/HYDROcodone 325 MG/10 MG TAB PO PRN ×3 (01:45→13:23)
[2017-08-29] MEDS: HYDROmorphone HCL PF 2 MG/ML VIAL IV PRN ×2 (04:31)
[2017-08-29] MEDS: LACTATED RINGER'S 1000 ML INJ 1,000 ML IV SCH (05:24)
--- NOTE | 2017-08-29 07:13 | PD.ORT.PN ---
Subjective Subjective Remarks Moderate left leg pain. Some throbbing and aching. No other concerns. Questions about work and discharge. Objective Vitals Vital Signs Date Time Temp Pulse Resp B/P (MAP) Pulse Ox O2 Delivery O2 Flow Rate FiO2 08/29/17 00:06 98.5 78 16 129/72 (91) 98 08/28/17 20:00 99.7 83 16 147/74 (98) 98 08/28/17 16:00 98.7 83 18 113/73 (86) 98 08/28/17 12:00 98.2 82 18 121/78 (92) 93 08/28/17 08:00 97.5 79 18 170/69 (102) 97 I/O 08/28/17 08/28/17 08/28/17 08/29/17 08/29/17 08/29/17 07:00 15:00 23:00 07:00 15:00 23:00 Intake Total 600 ml 850 ml 1240 ml 480 ml Balance 600 ml 850 ml 1240 ml 480 ml Intake Oral 600 ml 850 ml 240 ml 480 ml IV Total 1000 ml # Voids 2 4 2 1 # Bowel Movements 0 0 0 Result Diagram: 08/27/17 0341 08/27/17 0341 Objective Remarks Laying in bed NAD VSS LLE Left leg dressings clean and dry. intact. NVI with good dorsiflexion of toes and ankle. compartments soft - Seen and evaluated by Dr. Flora Early Assessment & Plan Ortho Post Op Day #: 1 Problem List: Assessment and Plan 1) Left tibia shaft spiral fracture s/p IMN - POD 1 -NWB. Amublate w walker -daily dressing changes POD 2 - Lovenox for anticoagulation -Ok to d/c home today if med clear. -f/u wtluli Goodman or [facility] in 2 weeks Greer Arnold Aug 29, 2017 07:13
[2017-08-29 08:00] VITALS: BP 119/68; PULSE 80; RESP 17; TEMP 98.5; O2SAT 98
--- NOTE | 2017-08-29 09:06 | HHI.DS ---
Discharge Summary Admission Date Aug 26, 2017 at 21:26 Discharge Date: Aug 29, 2017 Admitting Diagnosis spiral fractures of the distal tibia and proximal fibula (1) Fracture of distal end of tibia ICD Code: S82.309A - Unspecified fracture of lower end of unspecified tibia, initial encounter for closed fracture Status: Acute (2) Fracture, fibula, proximal ICD Code: S82.839A - Other fracture of upper and lower end of unspecified fibula, initial encounter for closed fracture Status: Acute Procedures 08/27/2017 Left tibia reduction and intramedullary nail fixation Brief History - From Admission 32-year-old male with no significant past medical history presents the emergency department for evaluation of left leg deformity/pain. The patient reports he was playing baseball when he attempted to slide into third base at which time he felt severe pain in his right lower extremity. He denies any lacerations or open areas to the lower leg. Per emergency department notes there was an obvious deformity of the left lower extremity. At this time, the patient is splinted. He has full range of motion of his toes and is neurovascularly intact. He continues to complain of lower extremity pain. He denies any chest pain or shortness of breath. No nausea/vomiting/diarrhea. No other associated symptoms. CBC/BMP: 08/27/17 0341 08/27/17 0341 Significant Findings Laboratory Tests Test 08/26/17 20:35 08/27/17 03:41 White Blood Count 11.8 TH/MM3 (4.0-11.0) Neutrophils (%) (Auto) 80.1 % (16.0-70.0) Neutrophils # (Auto) 9.4 TH/MM3 (1.8-7.7) Activated Partial Thromboplast Time 22.1 SEC (24.3-30.1) Random Glucose 113 MG/DL (74-106) Calcium Level 8.2 MG/DL (8.5-10.1) 8.2 MG/DL (8.5-10.1) Aspartate Amino Transf (AST/SGOT) 10 U/L (15-37) Potassium Level 3.4 MEQ/L (3.5-5.1) Estimat Glomerular Filtration Rate 68 ML/MIN (>89) 80 ML/MIN (>89) Red Blood Count 4.40 MIL/MM3 (4.50-5.90) Monocytes (%) (Auto) 9.2 % (0.0-8.0) Monocytes # (Auto) 1.0 TH/MM3 (0-0.9) Imaging Last Impressions Tibia/Fibula X-Ray 08/27/17 0000 Signed Impressions: Service Date/Time: August 13:10 - CONCLUSION: Good position and alignment on this postoperative study. Donnell Yañez MD PE at Discharge GENERAL: Alert, oriented 3, NAD. Mild distress due to pain. SKIN: Warm and dry. HEAD: Normocephalic. EYES: No scleral icterus. No injection or drainage. NECK: Supple, trachea midline. No JVD or lymphadenopathy. CARDIOVASCULAR: Regular rate and rhythm without murmurs, gallops, or rubs. RESPIRATORY: Breath sounds equal bilaterally. No accessory muscle use. GASTROINTESTINAL: Abdomen soft, non-tender, nondistended. MUSCULOSKELETAL: No cyanosis, or edema. Left lower extremity status post intramedullary nail fixation. BACK: Nontender without obvious deformity. No CVA tenderness. Pt update on day of discharge In the chair doesn't appear in acute distress. However s asking for more pain meds. No n/v/d/c. denies fever or chills. Family at bedside Hospital Course Mr. Christensen is a pleasant 32-year-old male with no significant past medical history who was admitted to the hospital on 08/26/2017 due to left tibia and fibula fracture. -Spiral fractures of the distal tibia and proximal fibula on the left side -Status post left tibia reduction and intramedullary nail fixation -Acetaminophen, [place] PRN for pain. Dilaudid for Breakthrough. -Lovenox 40 mg every 24 hours for DVT prophylaxis -bowel regimen -Mild acute kidney injury -Mild hypokalemia -Creatinine 1.23 on admission. Improved to 1.07. Potassium 3.4 on admission improved to 3.9 - Hypertension - likely due to pain. Systolic BP in the 170s today. Previously, systolic BP 120s. Full code Lovenox. Pt Condition on Discharge: Stable Discharge Disposition: Discharge Home Discharge Time: > 30 minutes Discharge Instructions DIET: Follow Instructions for: As Tolerated, No Restrictions Activities you can perform: Weight Bearing as Debra (Gait training, Safety evaluation) Follow up Referrals: Orthopedics - 2 Weeks @ [facility] with Kevin Goodman MD PCP Follow-up - 2-3 Days New Medications: Hydrocodone-Acetaminophen (Hydrocodone-Acetaminophen) 10-325 mg Tab 1 TAB PO Q4H PRN for PAIN, #60 TAB 0 Refills Rivaroxaban (Xarelto) 10 Mg Tab 10 MG PO DAILY for Blood Clot Prevention, #14 TAB 0 Refills Walker/Adult/Folding (Walker/Adult/Folding) 1 Mis Mis EA .XX DIRECTED, #1 0 Refills Kirti Soto MD Aug 29, 2017 09:06
[2017-08-29] MEDS: ASCORBIC ACID 500 MG TAB PO SCH (10:27)
[2017-08-29] MEDS: CALCIUM/VITAMIN D 250 MG/125 U TAB PO SCH ×2 (10:28→13:23)
[2017-08-29] MEDS: CHOLECALCIFEROL (VIT D3) 1000 UNIT TAB PO SCH (10:28)
[2017-08-29] MEDS: SODIUM CHLORIDE 0.9% FLUSH 10 ML FLUSH IV FLUSH SCH (10:29)
[2017-08-29 12:00] VITALS: BP 126/78; PULSE 80; RESP 17; TEMP 98; O2SAT 98
== END 2017-08-29 15:19 | disposition home or self-care (01) | DRG 493 ==
LOC: NEPC 19:35 → NEDA 21:26 → NEDH 08-27 02:10 → N06A 08-27 16:22
PROVIDERS: ADMIT Hospitalist; ATTEND Hospitalist
PROC: 0QSH06Z Reposition Left Tibia with Intramedullary Internal Fixation Device, Open Approach (ICD-10-PCS; principal; 2017-08-27 12:07)
DX: S82.242A Displaced spiral fracture of shaft of left tibia, initial encounter for closed fracture (principal); N17.9 Acute kidney failure, unspecified; E87.6 Hypokalemia; S89.202A Unspecified physeal fracture of upper end of left fibula, initial encounter for closed fracture; F17.210 Nicotine dependence, cigarettes, uncomplicated; I10 Essential (primary) hypertension; D72.829 Elevated white blood cell count, unspecified; W21.89XA Striking against or struck by other sports equipment, initial encounter; Y92.320 Baseball field as the place of occurrence of the external cause; Y93.64 Activity, baseball
CPT/HCPCS: 73590; 76000; 80048; 80053; 85025; 85610; 85730; 94150; 96374; 96375; C1713; J0131; J0690; J1170; J1580; J1650; J2175; J2250; J2270; J2405; J2710; J3010; J3370; J3480; J7030; J7120